=== PATIENT | male | born 1980 | race Caucasian/White ===

== ENCOUNTER 2018-10-23 03:06 | Emergency (ER) | payer SELFPAY ==
[~2018-10-23] VITALS: Ht 175.3 cm; Wt 77.1 kg
[2018-10-23 03:19] VITALS: BP 106/71
--- NOTE | 2018-10-23 03:19 | NUR ---
ED Nurse Note: Patient presents with complaints of stuck genital ring, x 1 day. Patient reports pain 8/10.
--- NOTE | 2018-10-23 04:10 | Emergency Room Report ---
History of Present Illness General Chief Complaint: General Complaint Source: Patient Present Illness HPI Patient is a 38-year-old male who presented after increased swelling to his genitalia. Patient had placed a large metallic ring around his penis and scrotum. This is becoming increasingly swollen. He had been able to remove this for the past 2 days. He denies any other current complaints. Patient had been having some continued sensation to the area. He denies any fever. 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 Review of Systems All Other Systems: negative except mentioned in HPI Physical Exam Vital Signs Date Time Temp Pulse Resp B/P (MAP) Pulse Ox O2 Delivery O2 Flow Rate FiO2 10/23/18 03:19 97.9 88 16 106/71 (83) 94 Room Air General Appearance: well appearing, no apparent distress, alert, GCS 15, non- toxic Head: normocephalic, atraumatic ENT: hearing grossly normal, normal voice Neck: full range of motion, supple Respiratory: no respiratory distress, speaking full sentences Genitourinary: other - scrotal and penile edema Musculoskeletal: no calf tenderness Neurologic: normal inspection, alert, oriented x3, responsive, envelope adjuster III-XII nml as tested, normal gait Psychiatric: mood/affect normal Skin: no rash Medical Decision Making Diagnostic Impression: Primary Impression: Penile swelling ER Course Patient noted to have marketed penile and scrotal swelling. Patient's genitalia were noted to be circumferentially and closed in a steel ring. An attempt was made at cutting with a ring cutter without any success. Attempt is made at reduction of scrotal contents and this was also unsuccessful. Fire department was contacted and initially presented with inadequate tools to cut the steel ring. A second fire department squad was contacted who removed the ring successfully with cutting tool. Patient was noted to have no cuts or abrasions due to removal attempt. Patient stated that he felt better after removal and wanted to leave. Patient was advised to follow-up with urology if he had any worsening of condition or other concerns.Patient presented for penile tourniquet syndrome. Differential diagnosis include was not limited to ischemia, tourniquet, among others. Last Vital Signs Date Time Temp Pulse Resp B/P (MAP) Pulse Ox O2 Delivery O2 Flow Rate FiO2 10/23/18 03:19 97.9 79 16 106/71 94 Room Air Status: improved Disposition: HOME, SELF-CARE Condition: Stable Referrals: NOT CHOSEN IPA/,REFERRING (PCP) Taz Zimmerman MD Oct 23, 2018 04:10
--- NOTE | 2018-10-23 04:19 | NUR ---
ED Nurse Note: Patient growing increasingly frustrated, is resting comfortably awaiting recommendation from [facility].
[2018-10-23] MEDS ORDERED: Terbutaline 1mg/ml Inj SUBQ ONE (05:15)
[2018-10-23] MEDS ORDERED: HYDROcodone/Acetamin 5/325 tab ORAL ONE (05:15)
--- NOTE | 2018-10-23 05:16 | NUR ---
ED Nurse Note: Patient medicated for pain and to decrease circulation to affected area. Patient tolerated injection well.
--- NOTE | 2018-10-23 05:46 | NUR ---
ED Nurse Note: Patient reports decreased pain and throbbing sensation post medication administration.
--- NOTE | 2018-10-23 06:30 | NUR ---
ED Nurse Note: Patient able to ambulate to restroom and void. Patient assisted with lubricant to free affected area with no progress. Patient supplied with ice packs to decrease swelling in affected area. Will continue to monitor.
--- NOTE | 2018-10-23 07:15 | NUR ---
ED Nurse Note: recieved pt on bed, paramedics on bedside removing the penile ring by a mechanical cutter, pt able to tolerate without pain on the process. penile ring carefully cut and successfully removed.
[2018-10-23 07:29] VITALS: BP_SYST 106; BP_DIAS 69; BP_DIAS 71
--- NOTE | 2018-10-23 07:29 | NUR ---
ER DISCHARGE NOTE: Patient is cleared to be discharged per ERMD, pt is aox4, on room air, with stable vital signs. pt was given dc and prescription instructions, pt was able to verbalize understanding, pt id band removed without complications. pt is able to ambulate with steady gait. pt took all belongings.
== END 2018-10-23 07:29 | disposition home or self-care (01) ==
LOC: EMR 03:29
DX: N50.89 Other specified disorders of the male genital organs (principal)
CPT/HCPCS: 96372; 99283